=== PATIENT | female | born 1960 | race Caucasian/White ===

== ENCOUNTER → 2017-03-06 | Outpatient (CLI) | payer OTHER ==
[2017-03-06 18:11] LABS: BLOOD UREA NITROGEN 19 mg/dl (7-18); BUN/CREATININE RATIO 27.2 (10-20); CALCIUM 9.5 mg/dl (8.5-10.1); CARBON DIOXIDE 30 mmol/L (21-32); CHLORIDE 104 mmol/L (98-107); CREATININE 0.69 mg/dl (0.60-1.20); GLUCOSE 92 mg/dl (70-99); POTASSIUM 4.5 mmol/L (3.5-5.1); SODIUM 139 mmol/L (136-145)
[2017-03-06 18:22] LABS: ALT/SGPT 37 U/L (12-78); CHOLESTEROL 157 mg/dl (0-200); CHOLESTEROL/HDL RATIO 2.3; HDL CHOLESTEROL 68 mg/dl; LDL CHOLESTEROL CALCULATED 78 mg/dl; THYROID STIMULATING HORMONE < 0.005 uIu/ml (0.300-4.500); TRIGLYCERIDES 57 mg/dl (0-150); VERY LOW DENSITY LIPOPROT CALC 11 mg/dl
== END | disposition home or self-care (01) ==
LOC: C.LABMFLN 15:08
PROVIDERS: ATTEND Family Medicine
DX: I10 Essential (primary) hypertension (principal); E55.9 Vitamin D deficiency, unspecified; R07.2 Precordial pain; R00.2 Palpitations

== ENCOUNTER → 2017-03-08 | Outpatient (CLI) | payer OTHER ==
[2017-03-11 12:02] LABS: MICROSOMAL AB 141 IU/ML (<9); THYROGLOBULIN 76.1 NG/ML (2.8-40.9)
== END | disposition home or self-care (01) ==
LOC: C.LABMFLN 12:47
PROVIDERS: ATTEND Family Medicine
DX: E05.90 Thyrotoxicosis, unspecified without thyrotoxic crisis or storm (principal)

== ENCOUNTER → 2017-03-22 | Outpatient (CLI) | payer OTHER ==
--- NOTE | 2017-03-22 15:12 | EXERCISE STRESS TEST ---
This stress test is being performed because of a chest pain syndrome. The patient exercised for 4 minutes and 54 seconds on a standard Jerardo protocol, attaining 6.8 METS and a peak heart of 162 beats per minute (97% predicted max). The test was terminated due to fatigue. The patient did not experience chest discomfort. Initial blood pressure is 158/78 and this increased to 204/98 at peak exertion. Baseline EKG showed normal sinus rhythm without abnormalities. Throughout exercise and recovery, the ST segments remained normal. There are no dysrhythmias. CONCLUSIONS: 1. Normal ECG treadmill test predicting a low probability of significant coronary artery disease. 2. No exercise-induced chest pain. 3. No dysrhythmia. MTDD
== END | disposition home or self-care (01) ==
LOC: C.CPL 08:22
PROVIDERS: ATTEND Family Medicine
DX: R07.2 Precordial pain (principal)

== ENCOUNTER → 2017-05-23 | Outpatient (CLI) | payer OTHER | END | disposition home or self-care (01) | LOC: C.LAB1850 09:34 | PROVIDERS: ATTEND Internal Medicine Endocrinology, Diabetes & Metabolism | DX: E05.90 Thyrotoxicosis, unspecified without thyrotoxic crisis or storm (principal) ==

== ENCOUNTER → 2017-06-14 | Outpatient (CLI) | payer OTHER ==
[2017-06-14 19:18] LABS: THYROID STIMULATING HORMONE < 0.005 uIu/ml (0.300-4.500)
== END | disposition home or self-care (01) ==
LOC: C.LABMFLN 11:24
PROVIDERS: ATTEND Internal Medicine Endocrinology, Diabetes & Metabolism
DX: E05.90 Thyrotoxicosis, unspecified without thyrotoxic crisis or storm (principal)

== ENCOUNTER → 2017-08-09 | Outpatient (CLI) | payer OTHER ==
--- NOTE | 2017-08-09 09:21 | DIAGNOSTIC IMAGING REPORT ---
I-131 THERAPY FOR HYPERTHYROIDISM CLINICAL HISTORY: E05.90 HYPERTHYROIDISM COMPARISON STUDY: No previous studies for comparison. FINDINGS: The risks the procedure were explained to the patient and informed consent was obtained. The postprocedure precautions were explained the patient. The patient expressed an understanding. The patient was administered oral capsule containing 20.4 mCi of I-131. The patient will be followed by Dr. Spence IMPRESSION: Initial treatment of hyperthyroidism with oral capsule containing 20.4 mCi of I-131. Electronically signed by: Brandyn Clark M.D. 08/09/2017 9:20 AM Dictated Date/Time: 08/09/2017 9:19 AM
== END | disposition home or self-care (01) ==
LOC: C.NUCL 08:21
PROVIDERS: ATTEND Internal Medicine Endocrinology, Diabetes & Metabolism
DX: E05.90 Thyrotoxicosis, unspecified without thyrotoxic crisis or storm (principal)

== ENCOUNTER → 2017-09-20 | Outpatient (CLI) | payer OTHER | END | disposition home or self-care (01) | LOC: C.LABMFLN 12:30 | PROVIDERS: ATTEND Internal Medicine Endocrinology, Diabetes & Metabolism | DX: E05.90 Thyrotoxicosis, unspecified without thyrotoxic crisis or storm (principal) ==

== ENCOUNTER → 2017-11-04 | Outpatient (CLI) | payer OTHER | END | disposition home or self-care (01) | LOC: C.LABMFLN 14:02 | PROVIDERS: ATTEND Internal Medicine Endocrinology, Diabetes & Metabolism | DX: Z86.39 Personal history of other endocrine, nutritional and metabolic disease (principal) ==

== ENCOUNTER → 2017-12-02 | Outpatient (CLI) | payer OTHER | END | disposition home or self-care (01) | LOC: C.LABMFLN 13:11 | PROVIDERS: ATTEND Internal Medicine Endocrinology, Diabetes & Metabolism | DX: E89.0 Postprocedural hypothyroidism (principal) ==